=== PATIENT | male | born 1990 | race Caucasian/White ===

== ENCOUNTER 2016-05-12 16:03 | Emergency (ER) | payer OTHER ==
[~2016-05-12] VITALS: Ht 177.8 cm; Wt 79.7 kg
[2016-05-12 16:06] VITALS: TEMP 36.4; Ht 177.8 cm; Wt 79.7 kg
[2016-05-12] MEDS ORDERED: ONDANSETRON INJ 2 MG/ML 2 ML VIAL IV STA (16:44)
[2016-05-12] MEDS ORDERED: SODIUM CHLORIDE 0.9% 1000ML 1,000 ML IV STA (16:44)
--- NOTE | 2016-05-12 16:58 | DIAGNOSTIC IMAGING REPORT ---
CHEST ONE VIEW PORTABLE CLINICAL HISTORY: Pain, radiating to the abdomen., Nausea, lightheadedness. COMPARISON STUDY: No previous studies for comparison. FINDINGS: The cardiac and mediastinal contours are normal. There is no evidence of focal pulmonary consolidation. There is no evidence of failure. No pleural effusions are visualized.[ No free intraperitoneal air is visualized IMPRESSION: No active disease in the chest. Electronically signed by: Deep Olivas M.D. 05/12/2016 4:57 PM Dictated Date/Time: 05/12/2016 4:56 PM
[2016-05-12] MEDS ORDERED: OPTIRAY 320 IV PRN (17:00)
[2016-05-12 17:24] LABS: BASO % 0.2 %; HEMATOCRIT 43.8 % (42-52); IG% 0.3 %; LYMPH % 27.3 %; MEAN CELL VOLUME 81.6 fL (80-100); MEAN CORPUSCULAR HEMOGLOBIN 27.6 pg (25-34); MEAN CORPUSCULAR HGB CONC 33.8 g/dl (32-36); MEAN PLATELET VOLUME 10.8 fL (7.4-10.4); MONO % 6.9 %; NEUT % 64.3 %; PLATELET COUNT 171 K/uL (130-400); RED BLOOD COUNT 5.37 M/uL (4.7-6.1)
[2016-05-12 17:25] LABS: BASO ABS # 0.01 K/uL (0-0.2); COMPLETE YES; LYMPH ABS # 1.69 K/uL (1.2-3.4)
[2016-05-12 17:38] LABS: INR 1.1 (0.9-1.1); PARTIAL THROMBOPLASTIN RATIO 0.9; PROTHROMBIN TIME (PATIENT) 11.5 SECONDS (9.0-12.0)
[2016-05-12 17:49] LABS: BUN/CREATININE RATIO 13.8 (10-20); CALCIUM 8.7 mg/dl (8.5-10.1); CREATININE 1.2 mg/dl (0.60-1.40); POTASSIUM 3.5 mmol/L (3.5-5.1)
[2016-05-12 18:00] LABS: URINE APPEARANCE CLEAR (CLEAR); URINE BILIRUBIN NEG (NEG); URINE COLOR YELLOW; URINE EPITHELIAL CELL AUTO 0-5 /lpf (0-5); URINE NITRITE NEG (NEG); URINE SPECIFIC GRAVITY 1.007 (1.000-1.030); UROBILINOGEN NEG (NEG); ZZUR CULT IF INDIC CLEAN CATCH NO
[2016-05-12 18:01] LABS: MANUAL MICROSCOPIC REQUIRED? NO; REVIEW REQ? NO
--- NOTE | 2016-05-12 19:22 | DIAGNOSTIC IMAGING REPORT ---
CT ABD/PELVIS IV CONTRAST ONLY CLINICAL HISTORY: Right-sided abdominal pain COMPARISON STUDY: None. TECHNIQUE: Following the IV administration of 118 mL of Optiray-320, CT scan of the abdomen and pelvis was performed from the lung bases to the proximal femurs. Images are reviewed in the axial, sagittal, and coronal planes. IV contrast was administered without complication. CT DOSE: 289.75 mGy.cm FINDINGS: Lower chest: The heart is normal in size and configuration, without pericardial effusion. The lung bases and pleural spaces are clear. Liver: The contrast-enhanced liver is normal in size, contour, and attenuation. There is no intrahepatic biliary ductal dilatation. The hepatic veins and portal veins are patent. Gallbladder: Contracted Spleen: Normal in size and attenuation. Pancreas: Unremarkable. Adrenal glands: Unremarkable. Kidneys: There is symmetric renal cortical enhancement. The kidneys are normal in size without hydronephrosis. Bowel: There are no transition zones indicate bowel obstruction. There is no acute diverticulitis. The appendix appears normal. Peritoneum: There is no intraperitoneal free air or abdominal ascites. There is a small fat-containing umbilical hernia. Vasculature: The abdominal aorta is normal in course and caliber. Adenopathy: None. Pelvic viscera: The bladder, and pelvic viscera are unremarkable. Skeletal structures: No destructive osseous lesions are seen. IMPRESSION: 1. No evidence of bowel obstruction. No evidence of free air 2. Small fat-containing umbilical hernia 3. Normal appendix 4. No evidence of acute diverticulitis Electronically signed by: Deep Olivas M.D. 05/12/2016 7:21 PM Dictated Date/Time: 05/12/2016 7:18 PM
--- NOTE | 2016-05-12 20:16 | EMERGENCY ROOM VISIT NOTE ---
History Report prepared by Ana: Angely Laughlin Under the Supervision of: Dr. Fidencio Case D.O. First contact with patient: 16:41 Chief Complaint: ABDOMINAL PAIN Stated Complaint: LOWER ABDOMINAL PAIN, PRESSURE, NAUSEA,LIGHTHEADED Nursing Triage Summary: pt c/o abd pressure above umbilicus for the last 2 days. now nausea, dizziness. "I don't have much pressure now. I think my appendix ruptured" History of Present Illness The patient is a 26 year old male who presents to the Emergency Room with complaints of constant right lower abdominal pain for the past two days. The patient describes the pain as a a pressure sensation. He notes that the pressure did subside at one point and he began to feel lightheaded. The patient also notes a burning and tightening sensation sometimes occurs. He is experiencing nausea and left lower back pain. He does note a decrease in appetite. Patient denies recent trauma. Source of History: patient Onset: 2 days [employer] Position: abdomen (RLQ) Quality: pressure Timing: constant Associated Symptoms: + back pain, + nausea Note: Patient is experiencing lightheadedness. Review of Systems See HPI for pertinent positives & negatives. A total of 10 systems reviewed and were otherwise negative. Past Medical & Surgical Medical Problems: (1) No Known Active Medical Problems Family History Cancer Diabetes mellitus Heart disease Hypertension Kidney disease Kidney stones Social History Smoking Status: Never Smoker Smokeless Tobacco Use: No Alcohol Use: occasionally Marital Status: single Housing Status: lives with friends Occupation Status: employed Current/Historical Medications No Active Prescriptions or Reported Meds Allergies Coded Allergies: No Known Allergies (Unverified , 05/12/16) Physical Exam Vital Signs Date Time Temp Pulse Resp B/P Pulse Ox O2 Delivery O2 Flow Rate FiO2 05/12/16 20:33 60 20 146/71 98 05/12/16 19:13 76 16 134/81 97 Room Air 05/12/16 17:32 79 14 141/80 98 Room Air 05/12/16 16:06 36.4 79 16 155/82 99 Room Air Physical Exam CONSTITUTIONAL/VITAL SIGNS: Reviewed / noted above. GENERAL: Non-toxic in appearance. INTEGUMENTARY: Warm, dry, and [place]. HEAD: Normocephalic. EYES: without scleral icterus or trauma. ENT/OROPHARYNX: clear and moist. LYMPHADENOPATHY/NECK: Is supple without lymphadenopathy or meningismus. RESPIRATORY: Lungs clear and equal. CARDIOVASCULAR: Regular rate and rhythm. GI/ABDOMEN: Soft. Mild mid right sided tenderness. No organomegaly or pulsatile mass. No rebound or guarding. Normal bowel sounds. EXTREMITIES: Warm and well perfused. BACK: Left lower CVA tenderness. NEUROLOGICAL: Intact without focal deficits. PSYCHIATRIC: normal affect. MUSCULOSKELETAL: Normally developed with good muscle tone. Medical Decision & Procedures ER Provider Diagnostic Interpretation: X ray results and stated below per my interpretation and radiologist interpretation. Other radiology results and stated below per my review and radiologist interpretation: CHEST ONE VIEW PORTABLE CLINICAL HISTORY: Pain, radiating to the abdomen., Nausea, lightheadedness. COMPARISON STUDY: No previous studies for comparison. FINDINGS: The cardiac and mediastinal contours are normal. There is no evidence of focal pulmonary consolidation. There is no evidence of failure. No pleural effusions are visualized.[ No free intraperitoneal air is visualized IMPRESSION: No active disease in the chest. Electronically signed by: Deep Olivas M.D. 05/12/2016 4:57 PM Dictated Date/Time: 05/12/2016 4:[address] ABD/PELVIS IV CONTRAST ONLY CLINICAL HISTORY: Right-sided abdominal pain COMPARISON STUDY: None. TECHNIQUE: Following the IV administration of 118 mL of Optiray-320, CT scan of the abdomen and pelvis was performed from the lung bases to the proximal femurs. Images are reviewed in the axial, sagittal, and coronal planes. IV contrast was administered without complication. CT DOSE: 289.75 mGy.cm FINDINGS: Lower chest: The heart is normal in size and configuration, without pericardial effusion. The lung bases and pleural spaces are clear. Liver: The contrast-enhanced liver is normal in size, contour, and attenuation. There is no intrahepatic biliary ductal dilatation. The hepatic veins and portal veins are patent. Gallbladder: Contracted Spleen: Normal in size and attenuation. Pancreas: Unremarkable. Adrenal glands: Unremarkable. Kidneys: There is symmetric renal cortical enhancement. The kidneys are normal in size without hydronephrosis. Bowel: There are no transition zones indicate bowel obstruction. There is no acute diverticulitis. The appendix appears normal. Peritoneum: There is no intraperitoneal free air or abdominal ascites. There is a small fat-containing umbilical hernia. Vasculature: The abdominal aorta is normal in course and caliber. Adenopathy: None. Pelvic viscera: The bladder, and pelvic viscera are unremarkable. Skeletal structures: No destructive osseous lesions are seen. IMPRESSION: 1. No evidence of bowel obstruction. No evidence of free air 2. Small fat-containing umbilical hernia 3. Normal appendix 4. No evidence of acute diverticulitis Electronically signed by: Deep Olivas M.D. 05/12/2016 7:21 PM Dictated Date/Time: 05/12/2016 7:18 PM Laboratory Results 05/12/16 17:15 Red Blood Count 5.37, Mean Corpuscular Volume 81.6, Mean Corpuscular Hemoglobin 27.6, Mean Corpuscular Hemoglobin Concent 33.8, Mean Platelet Volume 10.8, Neutrophils (%) (Auto) 64.3, Lymphocytes (%) (Auto) 27.3, Monocytes (%) (Auto) 6.9, Eosinophils (%) (Auto) 1.0, Basophils (%) (Auto) 0.2, Neutrophils # (Auto) 3.99, Lymphocytes # (Auto) 1.69, Monocytes # (Auto) 0.43, Eosinophils # (Auto) 0.06, Basophils # (Auto) 0.01 05/12/16 17:15 Test 05/12/16 17:15 05/12/16 17:30 White Blood Count 6.20 K/uL (4.8-10.8) Red Blood Count 5.37 M/uL (4.7-6.1) Hemoglobin 14.8 g/dL (14.0-18.0) Hematocrit 43.8 % (42-52) Mean Corpuscular Volume 81.6 fL (80-100) Mean Corpuscular Hemoglobin 27.6 pg (25-34) Mean Corpuscular Hemoglobin Concent 33.8 g/dl (32-36) Platelet Count 171 K/uL (130-400) Mean Platelet Volume 10.8 fL (7.4-10.4) Neutrophils (%) (Auto) 64.3 % Lymphocytes (%) (Auto) 27.3 % Monocytes (%) (Auto) 6.9 % Eosinophils (%) (Auto) 1.0 % Basophils (%) (Auto) 0.2 % Neutrophils # (Auto) 3.99 K/uL (1.4-6.5) Lymphocytes # (Auto) 1.69 K/uL (1.2-3.4) Monocytes # (Auto) 0.43 K/uL (0.11-0.59) Eosinophils # (Auto) 0.06 K/uL (0-0.5) Basophils # (Auto) 0.01 K/uL (0-0.2) RDW Standard Deviation 38.1 fL (36.4-46.3) RDW Coefficient of Variation 12.8 % (11.5-14.5) Immature Granulocyte % (Auto) 0.3 % Immature Granulocyte # (Auto) 0.02 K/uL (0.00-0.02) Prothrombin Time 11.5 SECONDS (9.0-12.0) Prothromb Time International Ratio 1.1 (0.9-1.1) Activated Partial Thromboplast Time 22.1 SECONDS (21.0-31.0) Partial Thromboplastin Ratio 0.9 Anion Gap 8.0 mmol/L (3-11) Est Creatinine Clear Calc Drug Dose 97.2 ml/min Estimated GFR () 96.8 Estimated GFR (Non- 83.5 BUN/Creatinine Ratio 13.8 (10-20) Calcium Level 8.7 mg/dl (8.5-10.1) Total Bilirubin 0.9 mg/dl (0.2-1) Direct Bilirubin 0.2 mg/dl (0-0.2) Aspartate Amino Transf (AST/SGOT) 24 U/L (15-37) Alanine Aminotransferase (ALT/SGPT) 39 U/L (12-78) Alkaline Phosphatase 57 U/L (45-117) Total Protein 7.4 gm/dl (6.4-8.2) Albumin 4.2 gm/dl (3.4-5.0) Lipase 175 U/L (73-393) Urine Color YELLOW Urine Appearance CLEAR (CLEAR) Urine pH 6.0 (4.5-7.5) Urine Specific [place] 1.007 (1.000-1.030) Urine Protein NEG (NEG) Urine Glucose (UA) NEG (NEG) Urine Ketones NEG (NEG) Urine Occult Blood NEG (NEG) Urine Nitrite NEG (NEG) Urine Bilirubin NEG (NEG) Urine Urobilinogen NEG (NEG) Urine Leukocyte Esterase NEG (NEG) Urine WBC (Auto) 0 /hpf (0-5) Urine RBC (Auto) 0-4 /hpf (0-4) Urine Hyaline Casts (Auto) 0 /lpf (0-5) Urine Epithelial Cells (Auto) 0-5 /lpf (0-5) Urine Bacteria (Auto) NEG (NEG) Laboratory results as stated above per my review. Medications Administered Medications (Trade) Dose Ordered Sig/Kait Route Start Time Stop Time Status Last Admin Dose Admin Sodium Chloride (Nss 1000ml) 1,000 ml @ 999 mls/hr Q1H1M STAT IV 05/12/16 16:44 05/12/16 17:44 DC 05/12/16 17:15 999 MLS/HR Ondansetron HCl (Zofran Inj) 4 mg NOW STAT IV 05/12/16 16:44 05/12/16 16:46 DC 05/12/16 17:15 4 MG ED Course 164: Previous medical records were reviewed. The patient was evaluated in room C5. A complete history and physical examination was performed. 1643: Zofran Inj 4 mg IV, Sodium Chloride 1,000 ml @ 999 mls/hr IV. 2015: On reevaluation, the patient is hemodynamically stable. I discussed the results and findings with the patient. He verbalized agreement of the treatment plan. He was discharged home. Medical Decision Differential considered: pancreatitis, hepatitis, or acute cholecystitis, AAA, UTI, pyelonephritis, kidney stones, appendicitis, diverticulitis, shingles, bowel obstruction mesenteric ischemia, intussusception,hernia, testicular torsion. The patient is a 26 year old male who presents to the ED with complaints of right sided abdominal pain. The patient reports that he has had some pressure in the right mid abdominal region as well as nausea for the past couple of days. If the symptoms seem to worsen again and then suddenly went away today. It seems to be coming back now. The patient was concerned about rupturing his appendix. He states that he has had some nausea. Vital signs are stable. His physical exam revealed some mild mid right abdominal tenderness. He also has some left lower CVA tenderness. He states that the pain feels internal. Chest x-ray did not show acute disease. CBC, complete metabolic panel, lipase and urine did not show abnormality. CT scan of the abdomen and pelvis did not show any acute process. The patient was told the results. He was treated with IV fluids. He is felt to be stable for discharge. Impression Primary Impression: Right sided abdominal pain Scribe Attestation The scribe's documentation has been prepared under my direction and personally reviewed by me in its entirety. I confirm that the note above accurately reflects all work, treatment, procedures, and medical decision making performed by me. Departure Information Dispostion Home / Self-Care Prescriptions No Active Prescriptions or Reported Meds Referrals No Doctor, Assigned (PCP) Forms HOME CARE DOCUMENTATION FORM, IMPORTANT VISIT INFORMATION Patient Instructions Abdominal Pain, My [facility] Additional Instructions Follow-up with your doctor for further care and evaluation in 1-2 days if symptoms persist. Return to the emergency department for worsening or new symptoms or any concerns. You have been examined and treated today on an emergency basis only. This is not a substitute for, or an effort to provide, complete comprehensive medical care. It is impossible to recognize and treat all injuries or illnesses in a single emergency department visit. It is therefore important that you follow up closely with your doctor. Call as soon as possible for an appointment.
[2016-05-12 20:33] VITALS: BP 146/71; PULSE 60; O2SAT 98
== END 2016-05-12 20:35 | disposition home or self-care (01) ==
LOC: C.EDB 16:04 → C.EDC 20:35
DX: R10.9 Unspecified abdominal pain (principal); Z83.3 Family history of diabetes mellitus; Z82.49 Family history of ischemic heart disease and other diseases of the circulatory system